=== PATIENT | female | born 1950 ===

== ENCOUNTER 2025-03-14 08:38 | Emergency (ER) | payer OTHER ==
[~2025-03-14] VITALS: Ht 154.9 cm; Wt 57.2 kg
[2025-03-14] MEDS ORDERED: CARAFATE1 GM PO (08:47)
[2025-03-14] MEDS ORDERED: ESTAZOLAM2 MG (08:48)
[2025-03-14] MEDS ORDERED: SINGULAIR4 MG PO (08:48)
[2025-03-14] MEDS ORDERED: KETOROLAC TROMETHAMINE 30 MG VIAL ONE ×2 (09:23→12:13)
[2025-03-14] MEDS ORDERED: KETOROLAC TROMETHAMINE 30 MG VIAL IV ONE ×2 (09:30→12:15)
[2025-03-14 10:03] LABS: BASO % 1.3 % (0.1-1.2); EOS # 0.30 (0.04-0.54); EOS % 6.3 % (0.7-7.0); LYMPH # 1.27 (1.18-3.74); LYMPH % 26.8 % (19.3-53.1); MEAN PLATELET VOLUME 9.20 fl (9.4-12.4); MONO # 0.40 (0.24-0.82); MONO % 8.4 % (4.7-12.5); NEUT # 2.70 (1.56-6.13); NEUT % 57.0 % (34.0-71.1); RED CELL DISTRIBUTION WIDTH 13.7 % (11.6-14.4)
[2025-03-14 10:16] LABS: URINE APPEARANCE Clear; URINE BILIRRUBIN Negative (NEGATIVE); URINE BLOOD Negative; URINE COLOR Yellow; URINE GLUCOSE Negative (NEGATIVE); URINE KETONE Negative (NEGATIVE); URINE LEUKOCYTE Negative; URINE NITRATE Negative; URINE PROTEIN Negative (NEGATIVE); URINE UROBILINOGEN 0.2 E.U./dl
[2025-03-14 10:20] LABS: URINE WBC 2.1 uL (0.0-23.2)
[2025-03-14 10:30] LABS: URINE BACTERIA 1.1 uL (0.0-1933); URINE CAST 0.00 uL (0.0-1.40); URINE EPITHELIAL CELLS 0.7 uL (0.0-38.8); URINE RBC 1.1 uL (0.0-20.8)
[2025-03-14 10:44] LABS: ALT/SGPT 26.0 U/L (12-78); AST/SGOT 16.0 U/L (15-37); BILIRUBIN TOTAL 0.4 mg/dL (0.3-1.2); BILIRUBIN,CONJUGATED 0.1 mg/dL (0.0-0.2); BUN CREA RATIO 24.0 (7.0-25.0); CREATININE SERUM 0.88 mg/dL (0.55-1.02); GFR 62.47; GLOBULINA 3.5 G/DL (2.4-3.5); GLUCOSE FASTING 96.0 mg/dL (65-100); OSMOLALITY SERUM 286.0 MOSM/KG (275-295)
[2025-03-14] MEDS ORDERED: PEPCID AC20 MG PO (11:48)
[2025-03-14] MEDS ORDERED: CIPRO500 MG PO (11:48)
[2025-03-14] MEDS ORDERED: PROBIOTIC1 EAC2 PO (11:48)
[2025-03-14] MEDS ORDERED: NORFLEX100MG PO (11:48)
[2025-03-14] MEDS ORDERED: METRONIDAZOLE500 MG PO (11:48)
[2025-03-14] MEDS ORDERED: ORPHENADRINE CITRATE 30 MG/ML AMPUL ONE (12:13)
[2025-03-14] MEDS ORDERED: ORPHENADRINE CITRATE 30 MG/ML AMPUL IM ONE (12:15)
== END 2025-03-14 13:02 | disposition home or self-care (01) ==
LOC: ER 08:39
PROVIDERS: General Practice
DX: R10.32 Left lower quadrant pain (principal); D39.10 Neoplasm of uncertain behavior of unspecified ovary; Z88.8 Allergy status to other drugs, medicaments and biological substances; J45.909 Unspecified asthma, uncomplicated